=== PATIENT | male | born 1985 | race African-American/Black ===

== ENCOUNTER 2018-06-18 10:53 | Emergency (ER) | payer OTHER ==
[~2018-06-18] VITALS: Ht 175.3 cm; Wt 79.4 kg
[2018-06-18] MEDS ORDERED: SEROQUEL 25 MG25 M1 PO (11:38)
[2018-06-18] MEDS ORDERED: TRAZODONE HCL50 MG PO (11:38)
[2018-06-18] MEDS ORDERED: ATIVAN1 MG PO (13:05)
[2018-06-18 13:26] VITALS: BP 133/89
== END 2018-06-18 13:26 | disposition home or self-care (01) ==
LOC: ER 10:53
DX: F41.9 Anxiety disorder, unspecified (principal); F32.9 Major depressive disorder, single episode, unspecified; F43.10 Post-traumatic stress disorder, unspecified